=== PATIENT | male | born 1975 | race Hispanic/Latino ===

== ENCOUNTER 2020-11-30 11:09 | Emergency (ER) | payer OTHER ==
[2020-11-30 11:57] LABS: EOSINOPHILS % (AUTO) 3.3 % (0.0-8.0); HEMATOCRIT 40.7 % (42-54); MEAN CORPUSCULAR HEMOGLOBIN 33.5 pg (27.0-33.0); MEAN CORPUSCULAR HGB CONC 35.1 g/dL (32.0-36.0); MEAN CORPUSCULAR VOLUME 95.3 fL (79-99); MONOCYTES % (AUTO) 13.8 % (3.0-13.0); NEUTROPHILS % (AUTO) 49.7 % (40.0-77.0); PLATELET COUNT (AUTO) 205 K/uL (130-400); RED BLOOD CELL COUNT(AUTO) 4.27 MIL/uL (4.50-6.20); RED CELL DISTRIBUTION WIDTH 12.7 % (11.0-15.5); WHITE BLOOD COUNT (AUTO) 4.2 K/uL (4.8-10.8)
[2020-11-30 12:00] LABS: CREATININE 0.6 mg/dL (0.5-1.5); POTASSIUM 3.8 mmol/L (3.5-5.1)
[2020-11-30 12:05] LABS: ALBUMIN 3.9 g/dL (3.5-5.0); BILIRUBIN,TOTAL 0.4 mg/dL (0.2-1.0); TOTAL PROTEIN, SERUM 7.8 g/dL (6.0-8.3)
[2020-11-30 12:24] LABS: INR 0.97 (0.85-1.15); PROTHROMBIN TIME 10.6 SEC (9.6-11.6)
[2020-11-30 12:44] LABS: PARTIAL THROMBOPLASTIN TIME 28.5 SEC (26.3-35.5)
== END 2020-11-30 14:21 | disposition home or self-care (01) ==
LOC: EDH 11:09
DX: R07.89 Other chest pain (principal); F14.10 Cocaine abuse, uncomplicated; F41.9 Anxiety disorder, unspecified; I10 Essential (primary) hypertension; E78.5 Hyperlipidemia, unspecified
CPT/HCPCS: 36415; 71045; 80053; 84484; 85025; 85610; 85730; 93005